=== PATIENT | male | born 1960 | race Caucasian/White ===

== ENCOUNTER 2021-08-19 11:27 | Emergency (ER) | payer MEDICAID ==
[~2021-08-19] VITALS: Ht 165.1 cm; Wt 75.0 kg
[2021-08-19] MEDS ORDERED: HYDROCODONE/ACETAMINOPHEN 5/325MG TABLET PO STA (12:39)
[2021-08-19] MEDS ORDERED: KETOROLAC 60MG/2ML VIAL IM STA (12:43)
[2021-08-19] MEDS ORDERED: BACITRACIN ZINC OINT UDPKT TOP NR (13:00)
[2021-08-19 13:12] VITALS: BP 147/67
== END 2021-08-19 13:13 | disposition home or self-care (01) ==
LOC: ER 11:50
DX: M24.542 Contracture, left hand (principal); Z48.00 Encounter for change or removal of nonsurgical wound dressing
CPT/HCPCS: 96372; 99283; J1885